=== PATIENT | male | born 1990 | race Two or more races ===

== ENCOUNTER 2017-06-16 00:45 | Emergency (ER) | payer BC ==
[~2017-06-16] VITALS: Ht 175.3 cm; Wt 81.6 kg
[2017-06-16] MEDS ORDERED: IBUPROFEN600 MG ORAL (02:14)
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
[2017-06-16 02:21] VITALS: BP 109/77
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
== END 2017-06-16 02:21 | disposition home or self-care (01) ==
LOC: EMR 01:22
DX: S09.8XXA Other specified injuries of head, initial encounter (principal); V43.52XA Car driver injured in collision with other type car in traffic accident, initial encounter; Y92.414 Local residential or business street as the place of occurrence of the external cause; Z88.0 Allergy status to penicillin
CPT/HCPCS: 70450; 99284